=== PATIENT | female | born 1985 | race Caucasian/White ===

== ENCOUNTER 2024-01-27 08:57 | Emergency (ER) | payer MEDICAID, SELFPAY ==
[2024-01-27] VITALS (21 sets, daily range): BP systolic 108–134; BP diastolic 58–85; PULSE 47–81; RESP 6–17; TEMP 36.5–36.8; O2SAT 100
--- NOTE | 2024-01-27 08:45 | RT.EKG_ITS ---
APPROVED REPORT Exam: Resting ECG Reason for Exam: palpitations Patient Location: E HR:79 bpm ECG Measurements Heart Rate 79 AXIS OR 138 P 71 QRSd 78 QRS 51 QT 362 T 29 QTc 416 Conclusion Sinus rhythm...normal P axis, V-rate 60- 99 Probable left atrial enlargement...P >50mS, <-0.10mV V1 sinus rhtthm, normal axis, noraml interavls, non ischemic
--- NOTE | 2024-01-27 09:12 | ED.GENADUL_ITS ---
Discharge Plan Disposition Patient Disposition: Home Condition: Improving Discharge Details Chief Complaint: Palpitatns Clinical Impression: Palpitations Primary Care Provider: Rayna Beverly ED Provider: Darrion Farley Home Meds and New Rx's Prescriptions: No Action ascorbic acid (vitamin C) [Vitamin C] 125 MG tablet,chewable 125 mg PO BID ashwagandha extract 120 mg capsule 120 mg PO DAILY cholecalciferol (vitamin D3) 125 mcg/0.5 mL (5K unit/0.5mL) drops 5 mcg PO DAILY vitamin B complex [Balanced B-50] Tablet 1 tab PO DAILY ferrous sulfate [Feosol] 325 mg (65 mg iron) tablet 325 mg PO DAILY iodine (kelp) 0.15 mg tablet 325 mcg PO .QOD magnesium glycinate 100 mg magnesium capsule 100 mg PO DAILY Discharge Instructions Instructions: Palpitations (DC) Additional Instructions: Please follow-up with your primary care physician. Return to the emergency department for any worsening symptoms HPI General Date/Time Provider Initiated Documentation: 01/27/24 09:01 . HPI Narrative: 38-year-old female presents with intermittent palpitations over the last couple of weeks shortness self-resolving without associated chest pain or shortness of breath, occasionally bilateral hand and finger numbness associated with this event noted that her blood pressure was high last night had a mild headache, patient denies history of coronary disease or thromboembolic disease no recent travel no recent hospitalization no recent trauma no exogenous estrogen use. No leg pain or swelling. Patient endorses that symptoms have largely resolved Related Data Home Medications ?Medication ?Instructions ?Recorded ?Confirmed ascorbic acid (vitamin C) 125 mg 125 mg PO BID 09/26/14 01/27/24 chewable tablet (Vitamin C) ashwagandha extract 120 mg capsule 120 mg PO DAILY 01/27/24 01/27/24 cholecalciferol (vitamin D3) 5 mcg PO DAILY 01/27/24 01/27/24 ferrous sulfate 325 mg (65 mg 325 mg PO DAILY 01/27/24 01/27/24 iron) tablet (Feosol) iodine (kelp) 0.15 mg tablet 325 mcg PO .QOD 01/27/24 01/27/24 magnesium glycinate 100 mg PO DAILY 01/27/24 01/27/24 vitamin B complex (Balanced B-50 1 tab PO DAILY 01/27/24 01/27/24 tablet) Allergies Allergy/AdvReac Type Severity Reaction Status Date / Time levofloxacin (From Levaquin) Allergy Unknown Other (See Unverified 01/27/24 09:10 Comment) tetracycline Allergy Unknown Other (See Unverified 01/27/24 09:10 Comment) General Stated Complaint: Palpitatns MARGARITA: 2 Exam Narrative Exam Narrative: Alert interactive no acute distress Moist mucous membranes Lungs clear bilaterally no wheezes rales or rhonchi Normal heart sounds normal rhythm normal rate no murmurs rubs or gallops No peripheral edema Alert and oriented cranial nerves intact 5-5 strength upper and lower extremities bilaterally ambulatory without assistance no ataxia Course Vital Signs Vital signs: Vital Signs Temperature 36.8 C 01/27/24 09:01 Pulse 80 01/27/24 09:01 Respiratory Rate 10 L 01/27/24 09:01 Blood Pressure 134/85 01/27/24 09:01 Pulse Oximetry 100 01/27/24 09:01 Temperature 36.8 C 01/27/24 09:01 Temperature Source Skin 01/27/24 09:01 Pulse 80 01/27/24 09:01 Respiratory Rate 10 L 01/27/24 09:01 Blood Pressure 134/85 01/27/24 09:01 Pulse Oximetry 100 01/27/24 09:01 Oxygen Delivery Method Room Air 01/27/24 09:01 Oxygen Flow Rate 0 01/27/24 09:01 Pain Level 2 01/27/24 09:01 Medical Decision Making 38-year-old female presents with intermittent short-lived palpitations over the last week associated with hand tingling and numbness bilaterally mild headache gradual in onset, no respiratory symptoms at this time, denies chest pain, patient has no past history of coronary disease no history of thromboembolic disease or risk factors, afebrile nontoxic normotensive EKG normal sinus rhythm nonischemic without evidence of arrhythmia or ectopy. Consider electrolyte derangement versus dehydration versus anxiety lower suspicion for ACS PE aortic pathology or pneumonia lower suspicion for malignant arrhythmia was also consider symptomatic PVCs or PACs. IV crystalloid fluid rest basic labs troponin TSH tick panel as patient did pull a tick off herself within the last couple of weeks not engorged no rash 11: 11 patient resting comfortably no acute distress. Hemodynamically stable. No arrhythmia noted. Labs imaging unremarkable. Patient is on her menstrual period, [id number] negative. Patient courage to follow-up close with her primary care physician. Home care instructions and return precautions given Quality:SDOH Health Related Social Needs: No Data to Display PFSH All Active Problems (Updated 01/27/24 @ 11:12 by Darrion Farley MD) Palpitations (Acute) Personal history of cervical dysplasia (Acute 10/12/15) 2000 SKY II Family History (Updated 11/19/18 @ 16:04 by Regi Dueñas NP) Father Well adult Mother Well adult Social History (Updated 11/19/18 @ 16:03 by Regi Dueñas NP) Smoking risk assessment performed?: No current occupation: [employer]
[2024-01-27] MEDS: Normal Saline 1,000 ML 1000 ML IV (09:20)
[2024-01-27 09:31] LABS: Abs Immature Grans 0.01 10^3/uL (0.0-0.06); Absolute Basophil Count 0.02 10^3/uL (0.0-0.2); Absolute Eosinophil Count 0.23 10^3/uL (0.0-0.7); Absolute Lymphocyte Count 1.83 10^3/uL (1.2-3.4); Absolute Monocyte Count 0.59 10^3/uL (0.1-0.8); Absolute Neutrophil Count 3.07 10^3/uL (1.2-6.7); Basophils % 0.3 %; HCT 39.6 % (36.0-46.0); HGB 13.5 g/dL (11.2-15.7); Immature Grans % 0.2 %; Lymphocytes % 31.8 %; MCH 30.3 pg (27.0-33.0); MCHC 34.1 % (32.0-36.0); MCV 89 fL (80-95); MPV 9.2 fL (8.0-11.0); Monocytes % 10.3 %; Neutrophils % 53.4 %; Platelet Count 316 10^3/uL (130-400); RBC 4.45 10^6/uL (3.93-5.22); RDW 12.1 % (11.7-14.6); RDW-SD 39.5 fL; WBC 5.75 10^3/uL (4.4-10.8)
[2024-01-27 09:39] LABS: PTT Activated 27.6 sec (23.6-32.8); Prothrombin Time 9.7 sec (9.1-11.1)
[2024-01-27 10:08] LABS: ALT 21 U/L (14-59); AST 15 U/L (15-37); Albumin 3.6 g/dL (3.4-5.0); Alkaline Phosphatase 60 U/L (46-116); Anion Gap 6.4 mmol/L (3-11); BUN 13 mg/dL (7-18); Bilirubin, Total 0.39 mg/dL (0.2-1.0); CO2 29.6 mmol/L (21.0-32.0); CREATININE 0.8 mg/dL (0.55-1.02); Calcium 8.8 mg/dL (8.5-10.1); Chloride 106 mmol/L (98-107); Estimated GFR 96.06 (mL/min/1.73m2); Glucose 112 mg/dL (74-106); NT-proBNP 117 pg/mL (<300); Sodium 142 mmol/L (136-145); Total Protein 7.3 g/dL (6.4-8.2); Troponin I < 50 ng/L (< or =60)
[2024-01-27 10:09] LABS: TSH (W/Ref FT4) 2.92 uIU/mL (0.36-3.74)
--- NOTE | 2024-01-27 10:19 | DI.RAD_ITS ---
Exam(s) XR CHEST 2V PA LATERAL EXAM: XR CHEST 2V PA LATERAL CLINICAL HISTORY: palpitations TECHNIQUE: 2D digital imaging was performed of the chest. Two images were obtained. PA and lateral views were obtained. COMPARISON: No exams were available for comparison FINDINGS: MEDIASTINUM: Normal. HEART: Normal. PULMONARY VASCULATURE: Normal. LUNGS: Clear. PLEURAL SPACE: No pleural effusion or pneumothorax. BONE:Within normal limits for the patient's age. OTHER FINDINGS:Normal. IMPRESSION: No acute pulmonary findings. DATA REPOSITORY: RADIATION DOSE DELIVERED:
[2024-01-27 10:24] LABS: Bilirubin Negative (Negative); Blood Large (Negative); Clarity Cloudy (Clear); Glucose Negative (Negative); Ketones Negative (Negative); Leukocyte Esterase Trace (Negative); Nitrite Negative (Negative); Urobilinogen 0.2 mg/dL (Up to 0.2); pH 6.5 (5-8)
[2024-01-27 10:35] LABS: C & S Indicated? Yes; RBC >50 HPF (0-2)
[2024-01-28 11:01] LABS: Lyme Ab w Rflx to Lyme Confirm Negative (Negative)
[2024-01-29 22:42] LABS: Anaplasma phagocytophilum Negative (Negative); B. miyamotoi PCR Negative (Negative); Babesia divergens/MO-1 Negative (Negative); Babesia duncani Negative (Negative); Babesia microti Negative (Negative); Ehrlichia chaffeensis Negative (Negative); Ehrlichia ewingii/canis Negative (Negative); Ehrlichia muris eauclairensis Negative (Negative)
== END 2024-01-27 11:21 | disposition home or self-care (01) ==
PROVIDERS: Emergency Provider Emergency Medicine; PCP Nurse Practitioner Adult Health
DX: R00.2 Palpitations (principal)
CPT/HCPCS: 80053; 81025; 82962; 87798; 93005; 96360; 96361; 99285; 71046; 81003; 81015; 83735; 83880; 84443; 84484; 85025; 85610; 85730; 86618; 87086; 93010; 99284

== ENCOUNTER 2024-04-04 03:27 | Outpatient (CLI) | payer MEDICAID, SELFPAY ==
[2024-04-04 15:09] LABS: Kit/Specimen SENT
[2024-04-04 15:20] LABS: Abs Immature Grans 0.02 10^3/uL (0.0-0.06); Absolute Basophil Count 0.02 10^3/uL (0.0-0.2); Absolute Eosinophil Count 0.31 10^3/uL (0.0-0.7); Absolute Lymphocyte Count 2.12 10^3/uL (1.2-3.4); Absolute Monocyte Count 0.54 10^3/uL (0.1-0.8); Absolute Neutrophil Count 4.36 10^3/uL (1.2-6.7); Basophils % 0.3 %; Eosinophils % 4.2 %; HGB 13.3 g/dL (11.2-15.7); Immature Grans % 0.3 %; Lymphocytes % 28.8 %; MCH 29.8 pg (27.0-33.0); MCHC 33.3 % (32.0-36.0); MCV 90 fL (80-95); MPV 9.2 fL (8.0-11.0); Monocytes % 7.3 %; Neutrophils % 59.1 %; Platelet Count 314 10^3/uL (130-400); RBC 4.46 10^6/uL (3.93-5.22); RDW 12.1 % (11.7-14.6); RDW-SD 39.7 fL; WBC 7.37 10^3/uL (4.4-10.8)
[2024-04-04 16:53] LABS: Iron 99 ug/dL (50-170); Total Iron Binding Capacity 291 ug/dL (250-450); Transferrin Sat 34 % (15-50)
[2024-04-04 17:16] LABS: ALT 19 U/L (14-59); AST 16 U/L (15-37); Albumin 3.5 g/dL (3.4-5.0); Alkaline Phosphatase 61 U/L (46-116); Anion Gap 6.8 mmol/L (3-11); BUN 11 mg/dL (7-18); CO2 29.2 mmol/L (21.0-32.0); CREATININE 0.8 mg/dL (0.55-1.02); Calcium 8.9 mg/dL (8.5-10.1); Chloride 105 mmol/L (98-107); Estimated GFR 96.06 (mL/min/1.73m2); FREE T4 0.93 ng/dL (0.76-1.46); Ferritin 37 ng/mL (8-252); Glucose 95 mg/dL (74-106); Potassium 4.2 mmol/L (3.5-5.1); Sodium 141 mmol/L (136-145); TSH 1.47 uIU/Ml (0.36-3.74); Total Protein 6.8 g/dL (6.4-8.2); Vitamin B12 649 pg/mL (193-986); Vitamin D 25 Total 89.7 ng/mL (30-100)
[2024-04-04 17:19] LABS: Folate > 20.0 ng/mL (8.6-20.0)
[2024-04-05 19:07] LABS: Thyroglobulin Antibody 72 U/mL (<=60); Thyroperoxidase Antibody 42 U/mL (<=60)
== END 2024-04-04 03:28 | disposition home or self-care (01) ==
LOC: LBO 03:28
PROVIDERS: Visit Provider Naturopath
DX: R00.2 Palpitations (principal); E61.1 Iron deficiency; E55.9 Vitamin D deficiency, unspecified
CPT/HCPCS: 36415; 80053; 82306; 86376; 82607; 82728; 82746; 83540; 83550; 83735; 84439; 84443; 85025

== ENCOUNTER 2024-06-07 02:28 | Outpatient (CLI) | payer MEDICAID, SELFPAY ==
[2024-06-07 09:52] LABS: Hemoglobin A1C 5.3 % (<5.7)
[2024-06-07 11:04] LABS: Calculated LDL 108 mg/dL (<100); Cholesterol 167 mg/dL (<200); HDL Cholesterol 41 mg/dL (40-60); Triglyceride 93 mg/dL (<150); Vitamin D 25 Total 70.7 ng/mL (30-100)
[2024-06-08 10:23] LABS: Homocysteine 6.8 umol/L (5.0-13.9)
[2024-06-10 10:45] LABS: Apolipoprotein A1, S 102 mg/dL (>=140); Apolipoprotein B, S 90 mg/dL (See Comment); Apolipoprotein B/A 1 ratio 0.9 (See Comment)
== END 2024-06-07 02:29 | disposition home or self-care (01) ==
LOC: LBO 02:28
PROVIDERS: PCP Naturopath; Visit Provider Naturopath
DX: E67.3 Hypervitaminosis D (principal); Z13.220 Encounter for screening for lipoid disorders
CPT/HCPCS: 36415; 80061; 82172; 82306; 83090; 83036

== ENCOUNTER 2024-08-08 01:20 | Outpatient (CLI) | payer MEDICAID, SELFPAY ==
--- OUTSIDE RECORDS SUMMARY | 2024-08-08 01:33 | XMS_ITS | Encounter Summary ---
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 Phone Unavailable Primary Care Provider Unavailabl e Encounter Details Date Type Department Care Team (Late st Contact Info) Description 01/27/2024 Lab Requisition [facility] Pathology & Laboratory Medicine - [facility] [address] [place] [address] Outr Resulting Lab, Provider Social History Tobacco Use Types Packs/Day Years Used Date Smoking Tobacco: Never Assessed Comments Unknown Sex and Gender Information Value Date Recorded Sex Assigned at Not on file Legal Sex Female 12:24 EDT Gender Identity Not on file Sexual Orientation Not on file documented as of this encounter Plan of Treatment Not on file documented as of this encounter Procedures Procedure Name Priority Date/Time Associated Diagnosis Comments LYME AB Routine 01/27/2024 9:15 EDT documented in this encounter Results * LYME AB (01/27/2024 9:15 EDT) Lyme Ab Negative Negative 01/28/2024 10:57 EDT [facility] Blood VENOUS BLOOD / Unknown 01/27/2024 9:15 EDT 01/27/2024 17:26 EDT us Provider Outr Resulting Lab IMMUNOLOGY AND SEROL OGY ORDERABLES Final Result [facility] [address], [place] [address] documented in this encounter Visit Diagnoses Not on filedocumented in this encounter
--- OUTSIDE RECORDS SUMMARY | 2024-08-08 01:33 | XMS_ITS | Clinical Summary ---
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 Phone Unavailable Primary Care Provider Unavailabl e Encounters Date Type Department Care Team Description 06/07/2024 Lab Requisition [facility] Pathology & Laboratory Medicine - [facility] [address] [place] [address] Outr Resulting Lab, Provider from Last 3 Months Social History Tobacco Use Types Packs/Day Years Used Date Smoking Tobacco: Never Assessed Comments Unknown Sex and Gender Information Value Date Recorded Sex Assigned at Not on file Legal Sex Female 12:24 EDT Gender Identity Not on file Sexual Orientation Not on file Plan of Treatment Health Maintenance Due Date Last Done Comments Hepatitis C Screen 1984 Hepatitis B Vaccine (1 of 3 - 19+ 3-dose series) 11/14 COVID-19 Vaccine ( season) 2024 Procedures Procedure Name Priority Date/Time Associated Diagnosis Comments HOMOCYSTEINE Routine 06/07/2024 9:38 EST from Last 3 Months Results * HOMOCYSTEINE (06/07/2024 9:38 EST) Homocysteine 6.8 5.0 - 13.9 umol/L 06/08/2024 10:[address] [facility] Blood VENOUS BLOOD / Unknown 06/07/2024 9:38 EST 06/07/2024 20:43 EST Narrative [facility] - 06/08/2024 10:19 EST Reference range may not apply to non-fasting samples. ??It is not recommended that EDTA plasma and serum from the same patient be used interchangeably. ??Serum concentrations have been observed to be up to 10% higher than EDTA plasma. Reference range may not apply to serum results. us Provider Outr Resulting Lab CHEMISTRY & BLOOD GA S ORDERABLES Final Result [facility] [address] [place] [address] from Last 3 Months
--- OUTSIDE RECORDS SUMMARY | 2024-08-08 01:33 | XMS_ITS | Continuity of Care Document ---
Author Organization [place] - [facility] [employer], MAIN OFFICE [place] [address] Assessment Encounter Date Assessment Date Assessment LastModified by Organization Details LastModified Time 05/17/2024 05/17/2024 Patient presented for follow up of labs. Studies ordered as below. Discussed plan with patient, who expressed understanding. Follow up as noted below. Please call if palpitations get worse or there are any associated chest pain, shortness of breath and/or dizziness. I spent a total of 45 minutes face to face time with this patient and of that time was spent in counseling and coordination of care with that patient as described in the progress note and /or: diagnostic results and impressions, Not available 05/18/2024 20:46:06 Plan of Treatment Reminders Order Date Submit Date Provider Last Modified By Organization Details Last Modified Time Details Appointments ESTABLISH ED PATIENT 45 2024 11:45A M Paulina Reynoso, [place] Not available Not available Not available Lab None recorded. Referral None recorded. Procedures None recorded. Surgeries None recorded. Imaging None recorded. Medication Orders None recorded. Patient TargetsNo targets recorded. Patient Instructions Encounter Date Encounter Id Patient Instructions Last Modified By Organization Details Last Modified Time 05/17/2024 [id number] painful menstrua l cramps: care instructions Not available 05/18/2024 20:46:06 1. continue ledu m and bartonella tincture for several more onths 2. MAgsoothe packets 1-2 daily- if having a lot of muscle cramps take 3xday for a few days then back to once daily 3. Continue monitoring pulse if feeling like heart is racing- 4. Consider Neurohormone testing for hormonal related symptoms Vitamin D- only take 1 drops daily- but could even take a break from it for a week every months Cont. previous supplments for at least 3 more months- repeat labs- and labs that didnt get done yet- cholesterol- fast 10 hours night before, Vit D- dont take for 3 days prior blood draw Not available 05/18/2024 20:45:02 Reason for Referral None Reported. Problems Name Problem SNOMED Code Status Onset Date Resolution Date Notes Provider Name and Address Organization Details Recorded Time Benign essential hypertensio n 6258234 Active 2023 Paulina Reynoso ND [address] [place] [address], [address], [facility] 10:44:40 Essential hypertensio n 72207510 Active 2023 Paulina Reynoso [address], [address], [facility] 10:57:54 Intermitten t palpitation s 324108976 Active 2023 Paulina Reynoso [address], [address] , [facility] 10:57:58 Iron deficiency without anemia 687074573 Active 2023 Paulina Reynoso ND [address] [place] [address], [address] , [facility] 11:13:53 Chronic constipatio n 087062907 Active 2023 Paulina Reynoso ND [address] [place] [address], [address] , [facility] 11:14:36 Hypervitami nosis D 68768259 Active 2023 Paulina Reynoso [address], [address] , [facility] 09:22:13 Manuelito is 815338350 Active 2023 Paulina Reynoso [address], [address] , [facility] 10/08/202 4 09:30:10 Palpitation s 40231184 Active 2023 Paulina Reynoso ND [address] [place] [address], [address], [facility] 4 14:00:23 Nocturnal muscle spasm 56536803 Active 2023 Paulina Reynoso ND [address] [place] [address], [address], [facility] 4 20:36:35 Dysmenorrhe a 885708285 Active 2023 Paulina Reynoso ND [address] [place] [address], [address], [facility] 4 20:37:09 Euthyroid with thyroid antibodies 730269267 Active 2023 Paulina Reynoso ND [address] [place] [address], [address], [facility] 4 20:45:30 Hyperlipide opal 42568841 Active 2023 Paulina Reynoso ND [address] [place] [address], [address], [facility] 4 11:59:40 Gynecologic examination Active 2018 Paulina Reynoso ND [address] [place] [address], [address], [facility] 9 07:35:33 Vitamin D deficiency 39666564 Active 2018 Paulina Reynoso ND [address] [place] [address], [address], [facility] 9 07:35:34 Dietary management surveillanc e Active 2018 Paulina Reynoso [address], [address], [facility] 9 07:35:35 Anisocoria [id number] Completed 201804/04/2019 Paulina SusieBISHOP shaikh [address] [place] [address], [address], [facility] 9 20:36:02 Constipatio n 02180739 Active 2018 Paulina Reynoso ND [address] [place] [address], [address], [facility] 9 07:35:56 Vitamin B12 deficiency (non anemic) 03828451 Active 2018 Paulina Reynoso ND [address] [place] [address], [address], [facility] 9 07:39:41 Iron deficiency 26951860 Active 2018 Paulina Reynoso ND [address] [place] [address], [address], [facility] 9 07:39:42 Problem Notes None recorded. Procedures Surgical History Date Name Laterality Status Provider Name and Address Organization Details Recorded Time 12/26/2015 Date of Last Pap Smear completed Paulina Reynoso ND [address] [place] [address], [address], [facility] 12/29/2018 14:53:40 Imaging Results None recorded. Procedure Notes None recorded. Medical Equipment None Reported. Allergies Allergen ID Allergen Name Allergen Category Reaction Reaction Severity Criticality Documentation Date Start Date Code Code System Note Provider Name and Address Organization Details Recorded Time 2293 Levaquin medicatio n other moderate Not available 12/29/2018 07487 2 RxNorm Paulina Reynoso ND [address] [place] [address], [address], [facility] 9 14:53:00 2295 saffron extract food,medi cation other moderate Not available 12/29/2018 57147 04 RxNorm Paulina Reynoso ND [address] [place] [address], [address], [facility] 9 14:53:00 2296 tetracycl ine medicatio n nausea moderate Not available 12/29/2018 00338 RxNorm Paulina Reynoso ND [address] [place] [address], [address], [facility] 9 14:53:00 2297 lactase medicatio n abdominal pain diarrhea nausea moderate moderate mild Not available 12/29/20181984 21784 RxNorm Paulina ReynosoBISHOP [address] [facility], [place], [address], [facility] 9 14:53:00 Medications Name Sig Start Date Stop Date Status Note LastModified by Organization Details LastModified Time Ferrasorb 2 caps 2xday for 1 month then 1 cap 2xday 019 active Not Available Not Available Not Avai lable Ferrasorb 1 cap 2xday with food or vit C rich foods like citrus 019 active Not Available Not Available Not Avai lable Ferrasorb 2 caps 2xday for 1 month then 1 cap 2xday 019 active Not Available Not Available Not Avai lable D-Mulsion 1000iu 4 drops /day 019 active Not Available Not Available Not Avai lable GI Fortify Powder 1/2 scoop 2xday in 10oz liquid for 3-4 days follwed by 10-12 oz water. Increase to 1 full scoop 2xday 019 active Not Available Not Available Not Avai lable QuickVue At-Home COVID-19 Test kit DIRECTED active Not Available Not Available No t Available Vitals None Recorded Social History Question Answer Notes LastModified by Organizat ion Details LastModified Time Tobacco Smoking Status Never Smoker Paulina ReynosoBISHOP [address] [facility], [place], [address], [facility] 12/29/2018 14:54:24 What Is Your Level Of Alcohol Consumption? None Information not available 12/29/2018 How Many Years Have You Consumed Alcohol? 7 Information not available 12/29/2018 Animal Exposure? Yes Informat ion not available 12/29/2018 Are You Blind Or Do You Have Difficulty Seeing? No Information not available 12/29/2018 What Is Your Level Of Caffeine Consumption? None Information not available 12/29/2018 How Much Tobacco Do You Chew? None Information not available 12/29/2018 Are You Currently Employed? Yes Information not available 12/29/2018 Are You Deaf Or Do You Have Serious Difficulty Hearing? No Information not available 12/29/2018 What Type Of Diet Are You Following? 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 No Information no t available 12/29/2018 Frequent Air Travel No Information not available 12/29/2018 Hard Of Hearing Or Deaf In One Or Both Ears? No Information not available 12/29/2018 Legally Blind In One Or Both Eyes? No Information no t available 12/29/2018 Live Alone Or With Others? Alone Information not available 12/29/2018 Marital Status Informatio n not available 12/29/2018 What Was The Date Of Your Most Recent Tobacco Screening? 12/29/2018 Information not available 01/27/2019 What Is Your Parents' Marital Status? Information not available 12/29/2018 What Is Your Relationship Status? Single Information not available 12/29/2018 Are You Sexually Active? No Information not available 12/29/2018 Do You Have Any Siblings? 3 Information not available 12/29/2018 Are You Passively Exposed To Smoke? No Information no t available 12/29/2018 General Stress Level Low Information not available 12/29/2018 Supplements Vitamin C And Calcium/Vitami n D Information not available 12/29/2018 Sex: Unknown Functional Status Question Answer Note LastModified by Organizat ion Details LastModified Time Do you have difficulty walking or climbing stairs? No Information not available 12/29/2018 Do you have difficulty doing errands alone? No Information not available 12/29/2018 Are you able to care for yourself? Yes Information not available 12/29/2018 Do you have difficulty dressing or bathing? No Information not available 12/29/2018 What is your exercise level? Occasional Information not available 12/29/2018 Mental Status Question Answer Note LastModified by Organization D etails LastModified Time Do you have difficulty concentrating, remembering or making decisions? No Information no t available 12/29/2018 Family History Relationship Description Onset Age of this Age Resolved Age Notes LastModified by Organization Details LastModified Time Maternal Aunt Arthritis Not available 12/29/2018 14:53:24 Maternal Grandmother Osteoporosis 70 Not available 12/29/2018 14:53:24 Maternal Grandmother Disorder of thyroid gland Not available 2018 14:53:24 Maternal Grandmother Arthritis Not available 14:53:24 Maternal Grandmother Hyperthyroid ism Not available 2023 11:11:07 Father Obesity 45 Not available 12/29/2018 14:53:24 Maternal Grandfather Heart disease Not available 2018 14:53:24 Sister Hypothyroidi sm Not available 2023 11:11:19 Medical History Condition Response Coronary Artery Disease N Other N Gout N Kidney Stones N Blood Diseases N Hyperthyroidism N Breast Cancer N Blood Transfusion N COPD N Hypothyroidism N Lung Disease N Depression N Defects or Inherited Disease N Developmental or Behavioral Disorders N Breast Problem N Difficulty Swallowing N Anesthesia Complications N Anxiety Disorder N Meniere's disease N Muscle, Joint, or Bone Problems N Obesity N Vision or Eye Problems N Arthritis N Infertility N Polyps N Mental Disorder N Cancer N Stroke N Varicosities N Endometriosis N Bladder or Kidney Problems N High Cholesterol N Liver Disease N Fibromyalgia N Headaches N Kidney Disease N Allergies/Hayfever N Heart Problems N Sleep problems/insomnia N Ear or Hearing Problems N Hospitalizations N Thyroid Problems N GI Problems N ADD/ADHD N Skin Problems N Eating Disorder N Anemia N MRSA exposure N Constipation N Mental Illness N Ovarian Cancer N Diabetes N Bedwetting N Seizures/Epilepsy N Tuberculosis N AIDS/HIV N Congestive Heart Failure (CHF) N Eczema N Diverticulitis N Abuse/Domestic Violence N Asthma N Reflux/GERD N Hepatitis N Heart Disease N Pulmonary Embolism N Pre-Eclampsia N Hypertension N Chronic Ear Infections N Osteoporosis N Chicken Pox Y Autism Spectrum Disorder (ASD) N Thrombophilias N Gynecological History Statement/Question Response Flow Moderate Frequency of Cycle (Q days) 28 Sexually Active? N N/A STIs/STDs N Date of Last Pap Smear 12/26/2015 Sexual Problems? N Duration of Flow (days) 5 Current Control Method None Desired Control Method N/A N Obstetrics History GPAL:G 0 P 0 0 0 0 Immunizations Vaccine Type Date Status Note Provider Nam e and Address Organization Details Recorded Time HPV, unspecified formulation 6 completed Paulina Reynoso, [address], [address], [facility] 12/29/2018 14:55:38 polio, unspecified formulation 1 completed Paulina Reynoso, [address], [address], [facility] 12/29/2018 14:55:38 tetanus toxoid, unspecified formulation 0 completed Paulina Reynoso, [address], [address], [facility] 12/29/2018 14:55:38 Meningococcal C/Y-HIB PRP 3 completed Paulina Reynoso, [address], [address], [facility] 12/29/2018 14:55:38 HPV, unspecified formulation 6 completed Paulina Reynoso [address], [address], [facility] 12/29/2018 14:55:38 MMR 0 completed Paulina Reynoso [address], [address], [facility] 12/29/2018 14:55:38 DTaP 8 completed Paulina Reynoso [address], [address], [facility] 12/29/2018 14:55:38 Past Encounters Encounter ID Performer Location Encounter Start Date Encounter Closed Date Diagnosis/Indication Diagnosis SNOMED-CT Code Diagnosis ICD10 Code Diagnosis Note [id number] Paulina Reynoso ND MAIN OFFICE [address] [place] [address] 05/17/2024 13:17:05 05/17/2024 14:13:16 Palpitations 02953455 R00.2 Nocturnal muscle spasm 46023774 G47.62 Dysmenorrhea 704723278 N 94.6 Euthyroid with thyroid antibodies 075126288 E07.81 Health Concerns Section Related Observation LastModified by Organization Yuriy mccormick LastModified Time None Recorded Concern Status LastModified by Organization Details LastModified Time None Recorded Payers Encounter Date Sequence Insurance Name Policy Number Policy Martinez Covered Member ID Martinez Member ID Guarantor Name 05/17/2024 1 [facility] (MEDICAID) Lissy Arriaza [id number] Lissy Arriaza Notes Date Note Type Note Provider Name and Address Organization Details Recorded Time 4 text/html PalpitationsReported bypatient.Quality:mild fluttering;irregular;rapi d Severity:mild Duration:lasts seconds Onset/Timing:occurs weekly Triggers/Context:restless legs;anxiety Aggravating Factors:worse with emotional stress;anxiety Associated Symptoms:no chest pain/discomfort; no dyspnea; no decline in exercise capacity; no associated dizziness;fatigue heart racing hasnt really chaanged since being on herbal tincture for bartonellashe feels mental fog has lifted and it more clear headed since starting the tincture-energy is somewhat better- too second day of period was very crampy-just one day the second day of period-she took alieve and it didnt really help only took edge off- she has never been checked for a cyst-she had achey feeling midcycle one time-no missed periodsno spotting between periods she never did doxycycline doesnt have any current rashes she feels she doesnt get enough water sts and she wondered if electrotyles-she has had muscle cramps at noght that wasnt allowed to move her left leg-she thinks related- not drinking enough- discussed electrolytes Paulina Reynoso, [place] [address] [facility], [place], [address], [place] - [facility] 05/18/2024 20:46:19 OBGyn Episode No OBEpisode recorded.
--- OUTSIDE RECORDS SUMMARY | 2024-08-08 01:33 | XMS_ITS | Data Portability ---
Author Organization [facility], MAIN OFFICE [place] [address] Assessment Encounter Date Assessment Date Assessment LastModified by Organization Details LastModified Time 04/12/2024 04/12/2024 Patient presente d for follow up of labs. Studies ordered as below. Discussed plan with , who expressed understanding. Follow up as noted below. I spent a total of 45 minutes face to face time with this patient and all of that time was spent in counseling and coordination of care with that patient as described in the progress note and /or: diagnostic results and impressions, risk factor reduction, Importance of compliance with treatment plan, and instructions for treatment and follow-up. Not available 05/18/2024 20:24:35 05/17/2024 05/17/2024 Patient presente d for follow up of labs. Studies ordered [...] results and impressions, Not available 05/18/2024 20:46:06 06/14/2024 06/14/2024 cardiovascular risk- is high with low A1 and high Apo B and ldl 108 and total 167- dietary- recommendations made and will be doing dietary assessment to prevent future cardiovascular or metabolic syndrome. I spent a total of 45 minutes face to face time with this patient and 40 min of that time was spent in counseling and coordination of care with that patient as described in the progress note and /or: diagnostic results and impressions, risk factor reduction, Importance of compliance with treatment plan, and instructions for treatment and follow-up. Patient advised to call if palpitations get worse or there are any associated chest pain, shortness of breath and/or dizziness. Not available 06/14/2024 18:40:38 08/02/2024 08/02/2024 I spent a total of 45 minutes face to face time with this patient and all of that time was spent in counseling and coordination of care with that patient as described in the progress note and /or: recommended diagnostic studies, risk factor reduction, pt and family education, Importance of compliance with treatment plan, and instructions for treatment and follow-up. Patient advised to call if palpitations get worse or there are any associated chest pain, shortness of breath and/or dizziness. Not available 08/03/2024 18:17:36 Plan of Treatment Reminders Order Date Submit Date Provider Last Modified By Organization Details Last Modified Time Details Appointments ESTABLISH ED PATIENT 45 2024 11:45A Melissa Reynoso, BISHOP Not available Not available Not available Lab lipid panel, serum 2023 [facility] [address] [place] [address] [place], [address], 05/24/2024 04:08:00 HbA1c (hemoglob in A1c), blood [address] [facility] [address] [place] [address] [place], [address], 05/24/2024 04:08:00 homocyste ine, serum or plasma 2023 [facility] [address] [place] [address] [place], [address], 05/24/2024 04:08:00 apolipopr otein B/apolipo protein A1 ratio [address] [facility] [address] [place] [address] [place], [address], 05/24/2024 04:08:00 vitamin D, 25-hydrox y, total, serum [address] [facility] [address] [place] [address] [place], [address], 06/07/2024 11:05:20 dhea-sulf ate, serum 2024 025 [facility] ([facility]), [address] [place] [address] [place], [address], 08/02/2024 11:45:05 testoster one, free + total, serum 2024 025 [facility] ([facility]), [address] [place] [address] [place], [address], 08/02/2024 11:45:05 progester one, serum 2024 025 [facility] ([facility] [address] [place] [address] [place], [address], 08/02/2024 11:45:05 estrogen fraction panel, serum or plasma 2024 025 [facility] ([facility] [address] [place] [address] [place], [address], 08/02/2024 11:45:05 iron + TIBC + ferritin, serum 2024 025 [facility] ([facility] [address] [place] [address] [place], [address], 08/02/2024 11:45:05 vitamin B12 + folate, serum or blood 2024 025 [facility] ([facility]), [address] [place] [address] [place], [address], 08/02/2024 11:45:05 Referral None recorded. Procedures None recorded. Surgeries None recorded. Imaging None recorded. Medication Orders None recorded. Patient Targets Encounter Date Encounter Id Patient Goals Patient Target Last Modified By Organization Details Last Modified Time 1.rx for doxycycline- sent to [facility] in [place]2. herbal tincture-for bartonella-60 drops 3xdaily for 1 monthcall if reaction or feeling like rashes are related to deotx3. NAC 900 2 cap p8yajinz- helps stop biofilm formation4. thyroid complex 1 cap 2xday5. vitamin D- 1 drops daily for 2 months and then retest- remeber to stop taking 3 days prior to testing againlipid testing next time get blood drawn-fast 10 hours night before- clear fluids only-ledum 2-3 pellets under tongue 2-3 xday or as instructed kknight Not available 05/18/2024 20:25:25 Patient Instructions Encounter Date Encounter Id Patient Instructions Last Modified By Organization Details Last Modified Time 05/17/2024 [id number] painful menstrua l cramps: care instructions Not [...] take for 3 days prior blood draw kknight Not available 05/18/2024 20:45:02 06/14/2024 [id number] palpitations: care instructions Not available 06/14/2024 18:42:52 high cholesterol : care instructions Not available 06/14/2024 18:42:52 1. Limit beef- 1 week, plant based proteins like lentil, beans, soybean whole (edamame), fish- 2xweekly- chicken and turkey- 3 xweekly for main meals Continue as you were unless noted: vit d, [employer] b-comlex, iron supp, megaspores, MG glycinate, NAC- reduce to 1 cap daily for another month then discontinue and only use if cold/flu or otherwise specified, thyroid support complex- bartonella herbs continue for 2-3 months more- 2. vitamin D take 1 drop daily for another month then 2 drops daily for rest of winter- 3. exercise daily- doing wieght lifting, squats, arm lifts, leg lifts to the point of burning muscles- you can add cardio with walking or stair climbs all without equipment- Not available 06/14/2024 11:59:32 08/02/2024 [id number] painful menstrua l cramps: care instructions Not available 08/02/2024 11:39:06 1. get blood work- for hormonal levels- days - of menstrual cycle 2. pap- up to date- [facility]- 3. herbal Bartonella support tincture 30 drops 3xday 4. continue diet with less red meat and more fish- and eat more vegetables- *call if palpitations get worse or there are any associated chest pain, shortness of breath and/or dizziness. Not available 08/03/2024 18:15:48 Reason for Referral None Reported. Results Created Date Observation Date Name Description Value Unit Range Abnormal Flag Note LastModifiedBy Organization Detail LastModifiedTime 04/04/2004/04/2024 COMPL ETE BLOOD COUNT W/DIF F WBC # bld auto 7.37 10_3/ uL 4.4-10 .8 normal Not Available [address] [place], [address] 04/04/2024 15:22:01 04/04/20 24 04/04/2024 COMPL ETE BLOOD COUNT W/DIF F RBC # bld auto 4.46 10_6/ uL 3.93-5 .22 normal Not Available [address] [place], [address] 04/04/2024 15:22:01 04/04/20 24 04/04/2024 COMPL ETE BLOOD COUNT W/DIF F HGB 13.3 g/dL 11.2-1 5.7 normal Not Available [address] [place], [address] 04/04/2024 15:22:01 04/04/20 24 04/04/2024 COMPL ETE BLOOD COUNT W/DIF F HCT vfr bld auto 40.0 % 36.0-4 6.0 normal Not Available [address] [place], [address] 04/04/2024 15:22:01 04/04/20 24 04/04/2024 COMPL ETE BLOOD COUNT W/DIF F MCV RBC 90 fL 80-95 normal Not Available Cate hi [address] [place], [address] 04/04/2024 15:22:01 04/04/20 24 04/04/2024 COMPL ETE BLOOD COUNT W/DIF F MCH RBC qn auto 29.8 pg 27.0-3 3.0 normal Not Available [address] [place], [address] 04/04/2024 15:22:01 04/04/20 24 04/04/2024 COMPL ETE BLOOD COUNT W/DIF F MCHC RBC auto-mcnc 33.3 % 32.0-3 6.0 normal Not Available [address] [place], [address] 04/04/2024 15:22:01 04/04/20 24 04/04/2024 COMPL ETE BLOOD COUNT W/DIF F RDW RBC auto-RTO 12.1 % 11.7-1 4.6 normal Not Available [address] [place], [address] 04/04/2024 15:22:01 04/04/20 24 04/04/2024 COMPL ETE BLOOD COUNT W/DIF F platelet # bld auto 314 10_3/ uL 130-40 0 normal Not Available [address] [place], [address] 04/04/2024 15:22:01 04/04/20 24 04/04/2024 COMPL ETE BLOOD COUNT W/DIF F pmv bld auto 9.2 fL 8.0-11 .0 normal Not Available [address] [place], [address] 04/04/2024 15:22:01 04/04/20 24 04/04/2024 COMPL ETE BLOOD COUNT W/DIF F neutrophils/ leuk nfr bld auto 59.1 % Not Available [address] [place], [address] 04/04/2024 15:22:01 04/04/20 24 04/04/2024 COMPL ETE BLOOD COUNT W/DIF F lymphocytes/ leuk nfr bld auto 28.8 % Not Available [address] [place], [address] 04/04/2024 15:22:01 04/04/20 24 04/04/2024 COMPL ETE BLOOD COUNT W/DIF F monocytes/le uk nfr bld auto 7.3 % Not Available [address] [place], [address] 04/04/2024 15:22:01 04/04/20 24 04/04/2024 COMPL ETE BLOOD COUNT W/DIF F eosinophil/l euk nfr bld auto 4.2 % Not Available [address] [place], [address] 04/04/2024 15:22:01 04/04/20 24 04/04/2024 COMPL ETE BLOOD COUNT W/DIF F basophils/le uk nfr bld auto 0.3 % Not Available [address] [place], [address] 04/04/2024 15:22:01 04/04/20 24 04/04/2024 COMPL ETE BLOOD COUNT W/DIF F imm granulocytes /leuk nfr bld auto 0.3 % Not Available [address] [place], [address] 04/04/2024 15:22:01 04/04/20 24 04/04/2024 COMPL ETE BLOOD COUNT W/DIF F NRBC/100 WBC bld auto-RTO 0.0 % 0.0-0. 3 normal Not Available [address] [place], [address] 04/04/2024 15:22:01 04/04/20 24 04/04/2024 COMPL ETE BLOOD COUNT W/DIF F neutrophils # bld auto 4.36 10_3/ uL 1.2-6. 7 normal Not Available [address] [place], [address] 04/04/2024 15:22:01 04/04/20 24 04/04/2024 COMPL ETE BLOOD COUNT W/DIF F lymphocytes # bld auto 2.12 10_3/ uL 1.2-3. 4 normal Not Available [address] [place], [address] 04/04/2024 15:22:01 04/04/20 24 04/04/2024 COMPL ETE BLOOD COUNT W/DIF F monocytes # bld auto 0.54 10_3/ uL 0.1-0. 8 normal Not Available [address] [place], [address] 04/04/2024 15:22:01 04/04/20 24 04/04/2024 COMPL ETE BLOOD COUNT W/DIF F eosinophil # bld auto 0.31 10_3/ uL 0.0-0. 7 normal Not Available [address] [place], [address] 04/04/2024 15:22:01 04/04/20 24 04/04/2024 COMPL ETE BLOOD COUNT W/DIF F basophils # bld auto 0.02 10_3/ uL 0.0-0. 2 normal Not Available [address] [place], [address] 04/04/2024 15:22:01 04/04/20 24 04/04/2024 IRON AND IBCT iron serpl-mcnc 99 ug/dL 50-170 normal Not Available [address] [place], [address] 04/04/2024 16:54:14 04/04/20 24 04/04/2024 IRON AND IBCT TIBC serpl-mcnc 291 ug/dL 250-45 0 normal Not Available [address] [place], [address] 04/04/2024 16:54:14 04/04/20 24 04/04/2024 IRON AND IBCT transferrin sat 34 % 15-50 normal Not Available [address] [place], [address] 04/04/2024 16:54:14 04/04/20 24 04/04/2024 COMPR EHENS JOSEPH METAB OLIC PANEL calcium serpl-mcnc 8.9 mg/dL 8.5-10 .1 normal Not Available [address] [place], [address] 04/04/2024 17:19:37 04/04/20 24 04/04/2024 COMPR EHENS JOSEPH METAB OLIC PANEL glucose serpl-mcnc 95 mg/dL 74-106 normal Not Available [address] [place], [address] 04/04/2024 17:19:37 04/04/20 24 04/04/2024 COMPR EHENS JOSEPH METAB OLIC PANEL BUN serpl-mcnc 11 mg/dL 7-18 normal Not Available [address] [place], [address] 04/04/2024 17:19:37 04/04/20 24 04/04/2024 COMPR EHENS JOSEPH METAB OLIC PANEL creat serpl-mcnc 0.8 mg/dL 0.55-1 .02 normal Not Available [address] [place], [address] 04/04/2024 17:19:37 04/04/20 24 04/04/2024 COMPR EHENS JOSEPH METAB OLIC PANEL GFR/bsa.pred serplbld YVV-oir-olrk at 96.06 mL/min /1.73M 2 The eGFR is calcu lated from a serum creat inine using the CKD-E PI 2020 equat ion. Other varia bles requi red for the equat ion are gende r and age; this equat ion does not inclu de a race coeff icien t. This equat ion has simil ar overa ll perfo rmanc e to previ ous equat ions excep t value s may diffe r, in parti cular , in patie nts with highe r value s of eGFR and young er-ag ed adult s. Not Available [address] [place], [address] 04/04/2024 17:19:37 04/04/20 24 04/04/2024 COMPR EHENS JOSEPH METAB OLIC PANEL prot serpl-mcnc 6.8 g/dL 6.4-8. 2 normal Not Available [address] [place], [address] 04/04/2024 17:19:37 04/04/20 24 04/04/2024 COMPR EHENS JOSEPH METAB OLIC PANEL albumin serpl-mcnc 3.5 g/dL 3.4-5. 0 normal Not Available [address] [place], [address] 04/04/2024 17:19:37 04/04/20 24 04/04/2024 COMPR EHENS JOSEPH METAB OLIC PANEL bilirub serpl-mcnc 0.30 mg/dL 0.2-1. 0 normal Not Available [address] [place], [address] 04/04/2024 17:19:37 04/04/20 24 04/04/2024 COMPR EHENS JOSEPH METAB OLIC PANEL ALP bld-ccnc 61 U/L 46-116 normal Not Available [address] [place], [address] 04/04/2024 17:19:37 04/04/20 24 04/04/2024 COMPR EHENS JOSEPH METAB OLIC PANEL sodium serpl-scnc 141 mmol/ L 136-14 5 normal Not Available [address] [place], [address] 04/04/2024 17:19:37 04/04/20 24 04/04/2024 COMPR EHENS JOSEPH METAB OLIC PANEL potassium serpl-scnc 4.2 mmol/ L 3.5-5. 1 normal Not Available [address] [place], [address] 04/04/2024 17:19:37 04/04/20 24 04/04/2024 COMPR EHENS JOSEPH METAB OLIC PANEL chloride serpl-scnc 105 mmol/ L 98-107 normal Not Available [address] [place], [address] 04/04/2024 17:19:37 04/04/20 24 04/04/2024 COMPR EHENS JOSEPH METAB OLIC PANEL CO2 serpl-scnc 29.2 mmol/ L 21.0-3 2.0 normal Not Available [address] [place], [address] 04/04/2024 17:19:37 04/04/20 24 04/04/2024 COMPR EHENS JOSEPH METAB OLIC PANEL anion gap serpl-scnc 6.8 mmol/ L 3-11 normal Not Available [address] [place], [address] 04/04/2024 17:19:37 04/04/20 24 04/04/2024 COMPR EHENS JOSEPH METAB OLIC PANEL AST serpl-ccnc 16 U/L 15-37 normal Not Available [address] [place], [address] 04/04/2024 17:19:37 04/04/20 24 04/04/2024 COMPR EHENS JOSEPH METAB OLIC PANEL ALT serpl-ccnc 19 U/L 14-59 normal Not Available [address] [place], [address] 04/04/2024 17:19:37 04/04/20 24 04/04/2024 KATHERYN TIN ferritin serpl-mcnc 37 NG/mL 8-252 normal Not Available [address] [place], [address] 04/04/2024 17:19:38 04/04/20 24 04/04/2024 MAGNE SIUM magnesium serpl-mcnc 2.0 mg/dL 1.8-2. 4 normal Not Available [address] [place], [address] 04/04/2024 17:19:38 04/04/20 24 04/04/2024 TSH TSH serpl-acnc 1.47 uIU/m L 0.36-3 .74 normal NOTE: Supra -phys iolog ic doses of Bioti n(B7) may cause false negat joseph resul ts. Not Available [address] [place], [address] 04/04/2024 17:19:38 04/04/20 24 04/04/2024 FREE T4 T4 free serpl-mcnc 0.93 NG/dL 0.76-1 .46 normal Not Available [address] [place], [address] 04/04/2024 17:19:39 04/04/20 24 04/04/2024 VITAM IN B12 vit B12 serpl-mcnc 649 pg/mL 193-98 6 normal Not Available [address] [place], [address] 04/04/2024 17:19:39 04/04/20 24 04/04/2024 FOLAT E folate serpl-mcnc > 20.0 NG/mL 8.6-20 .0 high Not Available [address] [place], [address] 04/04/2024 17:19:40 04/04/20 24 04/04/2024 VITAM IN D 25 TOTAL 25(oh)D3+25( oh)D2 serpl-mcnc 89.7 NG/mL 30-100 normal Refer ence Guide lines : Defic ient: <10 ng/ml Insuf ficie nt: 10-30 ng/ml Suffi cient : 30-10 0 ng/ml Toxic : >100 ng/ml Not Available [address] [place], [address] 04/04/2024 17:19:40 04/04/20 24 04/05/2024 THYRO ID ANTIB ODIES thyroglobuli n antibody 72 U/mL <=60 abnormal Not Available [address] [place], [address] 04/06/2024 08:16:06 04/04/2004/05/2024 THYRO ID ANTIB ODIES thyroperoxid ase Ab serpl-acnc 42 U/mL <=60 Test perfo rmed or refer red by [facility] [address] [place] [place] [address] Not Available [address] [place], [address] 04/06/2024 08:16:06 04/04/20 24 04/04/2024 KIT/S PECIM EN kit/specimen SENT Not Available [address] [place], [address] 04/15/2024 08:49:39 06/07/20 24 06/07/2024 HEMOG LOBIN A1C hemoglobin A1C 5.3 % <5.7 Refer ence Range s <5.7 Neda l 5.7-6 .4% Predi abete s 6.5% or great er Diagn ostic for diabe judy (if confi rmed) Refer ences : 1. Ameri can Diabe judy Assoc iatio n. Clas sific ation and Diagn osis of Diabe judy. Diabe judy Care 2018; 2(Sup pleme nt 1):S1 3-s28 . Not Available [address] [place], [address] 06/07/2024 09:53:46 06/07/20 24 06/07/2024 LIPID 2 cholest serpl-mcnc 167 mg/dL <200 Not Available [address] [place], [address] 06/07/2024 11:05:19 06/07/20 24 06/07/2024 LIPID 2 trigl serpl-mcnc 93 mg/dL <150 Not Available [address] [place], [address] 06/07/2024 11:05:19 06/07/20 24 06/07/2024 LIPID 2 HDLC serpl-mcnc 41 mg/dL 40-60 Not Available [address] [place], [address] 06/07/2024 11:05:19 06/07/20 24 06/07/2024 LIPID 2 LDLC serpl calc-mcnc 108 mg/dL <100 high Natio nal Stephany stero l Educa tion Progr am (NCEP -ATPI II) class ifica tions : Stephany stero l <200 mg/dL William able Stephany stero l 200-2 39 mg/dL Borde rline High Stephany stero l >or=2 40 mg/dL High HDL <40 mg/dL Low HDL >or=6 0 mg/dL High LDL <100 mg/dL Optim al LDL 100-1 29 mg/dL Near Optim al/Ab ove Optim al LDL 130-1 59 mg/dL Borde rline High LDL 160-1 89 mg/dL High LDL >or=1 90 mg/dL Very High *The above refer ence range is for adult s 18 years or older . Not Available [address] [place], [address] 06/07/2024 11:05:19 06/07/20 24 06/07/2024 VITAM IN D 25 TOTAL 25(oh)D3+25( oh)D2 serpl-mcnc 70.7 NG/mL 30-100 normal Refer ence Guide lines : Defic ient: <10 ng/ml Insuf ficie nt: 10-30 ng/ml Suffi cient : 30-10 0 ng/ml Toxic : >100 ng/ml Not Available [address] [place], [address] 06/07/2024 11:05:19 06/07/20 24 06/10/2024 APOLI POPRO TEIN A1 B APO A-I serpl-mcnc 102 mg/dL >=140 abnormal Not Available [address] [place], [address] 06/11/2024 10:43:56 06/07/20 24 06/10/2024 APOLI POPRO TEIN A1 B APO B serpl-mcnc 90 mg/dL see commen t ----- ----- ----- ----R EFERE NCE VALUE ----- ----- ----- ----- ----- - William able: <90 Above William able: 90-99 Borde rline high: 100-1 19 High: 120-1 39 Very high: > or = 140 Test Perfo rmed by: [facility] [address], [place] [address] Lab Direc tor: Guero Ricketts nn Ph.D. ; CLIA# [id number] Not Available [address] , [place], [address] 06/11/2024 10:43:56 06/07/2006/10/2024 APOLI POPRO TEIN A1 B APO B/APO A-I serpl 0.9 see commen t abnormal ----- ----- ----- ----R EFERE NCE VALUE ----- ----- ----- ----- ----- - Lower Risk: <0.6 Adrian ge Risk: 0.6-0 .8 Highe r Risk: >0.8 Not Available [address] [place], [address] 06/11/2024 10:43:56 06/07/20 24 06/08/2024 HOMOC YSTEI NE hcys serpl-scnc 6.8 umol/ L 5.0-13 .9 Refer ence range may not apply to non-f astin g sampl es. It is not recom josue d that EDTA plasm a and serum from the same patie nt be used inter singh eably . Serum magdaleno ntrat ions have been obser sam to be up to 10% highe r than EDTA plasm a. Refer ence range may not apply to serum resul ts. Test perfo rmed or refer red by [facility] [address], [place] [address] Not Available [address] [place], [address] 06/11/2024 10:43:57 Result Notes None recorded. Problems Name Problem SNOMED Code Status Onset Date Resolution Date Notes Provider Name and Address Organization Details Recorded Time Benign essential hypertensio n 9231376 Active 2023 Paulina Reynoso ND [address], [place], [address] , [facility] 10:44:40 Essential hypertensio n 97336048 Active 2023 Paulina Reynoso ND [address] [place], [address], [facility] 10:57:54 Intermitten t palpitation s 850523142 Active 2023 Paulina Reynoso, [address], [address], [facility] 10:57:58 Iron deficiency without anemia 788321698 Active 2023 Paulina Reynoso, [address], [address], [facility] 11:13:53 Chronic constipatio n 496898114 Active 2023 Paulina Reynoso, [address], [address], [facility] 11:14:36 Hypervitami nosis D 55024074 Active 2023 Paulina Susiehawa, [address], [address] , [facility] 09:22:13 Bartonellos is 641035108 Active 2023 Paulina Reynoso, [address], [address] , [facility] 09:30:10 Palpitation s 46155384 Active 2023 Paulina Susiehawa, [address], [address] , [facility] 14:00:23 Nocturnal muscle spasm 60925485 Active 2023 Paulinaelvia Reynoso, [address], [address], [facility] 20:36:35 Dysmenorrhe a 807017139 Active 2023 Paulina Reynoso, [address], [address], [facility] 4 20:37:09 Euthyroid with thyroid antibodies 060050537 Active 2023 Paulina Reynoso ND [address] [place] [address], [address], [facility] 4 20:45:30 Hyperlipide opal 78778313 Active 2023 Paulina Reynoso ND [address] [place] [address], [address], [facility] 4 11:59:40 Gynecologic examination Active 2018 Paulina Reynoso ND [address] [place] [address], [address], [facility] 9 07:35:33 Vitamin D deficiency 33361848 Active 2018 Paulina Reynoso ND [address] [place] [address], [address], [facility] 9 07:35:34 Dietary management surveillanc e Active 2018 Paulina Reynoso ND [address] [place] [address], [address], [facility] 9 07:35:35 Anisocoria 22082671 Completed 201804/04/2019 Paulina Reynoso ND [address] [place] [address], [address], [facility] 9 20:36:02 Constipatio n 69570956 Active 2018 Paulina Reynoso ND [address] [place] [address], [address], [facility] 9 07:35:56 Vitamin B12 deficiency (non anemic) 41750676 Active 2018 Paulina Reynoso ND [address] [place] [address], [address], [facility] 9 07:39:41 Iron deficiency 68247015 Active 2018 Paulina Reynoso ND [address] [place] [address], [address], [facility] 9 07:39:42 Problem Notes None recorded. Procedures Surgical History Date Name Laterality Status Provider Name and Address Organization Details Recorded Time 12/26/2015 Date of Last Pap Smear completed Paulina Reynoso ND [address] [place] [address], [address], [facility] 12/29/2018 14:53:40 Imaging Results None recorded. Procedure Notes None recorded. Medical Equipment None Reported. Allergies Allergen ID Allergen Name Allergen Category Reaction Reaction Severity Criticality Documentation Date Start Date Code Code System Note Provider Name and Address Organization Details Recorded Time 2294 Levaquin medicatio n other moderate Not available 12/29/2018 58718 2 RxNorm Paulina Reynoso ND [address] [place] [address], [address], [facility] 9 14:53:00 2295 saffron extract food,medi cation other moderate Not available 12/29/2018 96026 04 RxNorm Paulina Reynoso ND [address] [place] [address], [phone], [facility] 9 14:53:00 2296 tetracycl ine medicatio n nausea moderate Not available 12/29/2018 87929 RxNorm Paulina Reynoso ND [address] [place] [address], [phone], [facility] 14:53:00 2297 lactase medicatio n abdominal pain diarrhea nausea moderate moderate mild Not available 12/29/20181984 41708 RxNorm Paulina Reynoso ND [address] [place] [address], [phone] 1, [facility] 9 14:53:00 [...] for 1 month then 1 cap 2xday 09/24/2 019 active Not Available Not Available Not [...] Available Not Available No t Available Vitals Date Recorded Body weight Body mass index (BMI) Body height Heart rate Systolic blood pressure Diastolic blood pressure Systolic blood pressure Diastolic blood pressure Provider Name and Address Organization Details Last Updated DateTime 4 19594.9 3 g 27.8 kg/m2 165.1 cm 100 /min 128 mm[Hg] 76 mm[Hg] 99 mm[Hg] 76 mm[Hg] Paulina Reynoso ND [address] [place] [address], [phone] , [facility] [employer] [facility] 4 11:03:59 Date Recorded Body height Systolic blood pressure Diastolic blood pressure Provider Name and Address Organization Details Last Updated DateTime 06/14/2024 165.1 cm 108 mm[Hg] 70 mm[Hg] Paulina Reynoso ND [address] [place] [address], [phone] [employer] [facility] 06/14/2024 11:06:21 Date Recorded Body height Heart rate Oxygen saturation Oxygen saturation in Arterial blood by Pulse oximetry Body mass index (BMI) Body weight Systolic blood pressure Diastolic blood pressure Provider Name and Address Organization Details Last Updated DateTime 5 165.1 cm 70 /min 98 % 98 % 28.3 kg/m2 75813.7 g 122 mm[Hg] 68 mm[Hg] Paulina Reynoso ND [address] [place] [address], [phone] , [facility] [employer] [facility] 5 11:32:24 Social History Question Answer Notes LastModified by Organizat ion Details LastModified Time Tobacco Smoking Status Never Smoker Paulina Reyonso ND [address] [place] [address], [phone], [facility] [employer] [facility] 12/29/2018 14:54:24 What Is Your Level [...] Cancer N Blood Transfusion N COPD N Depression N Lung Disease N Hypothyroidism N Defects or Inherited Disease N Developmental or Behavioral Disorders N Breast Problem N Difficulty Swallowing N Anesthesia Complications N Meniere's disease N Anxiety Disorder N Muscle, Joint, or Bone Problems N Obesity N Vision or Eye Problems N Arthritis N Polyps N Infertility N Mental Disorder N Cancer N Varicosities N Stroke N Endometriosis N Bladder or Kidney Problems N High Cholesterol N Liver Disease N Headaches N Fibromyalgia N Kidney Disease N Allergies/Hayfever N Heart [...] Time HPV,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
--- OUTSIDE RECORDS SUMMARY | 2024-08-08 01:33 | XMS_ITS | Encounter Summary ---
Author Organization [facility] Address [address] [place] [address] Care Team Providers Care Trademark Affixer Name Role Phone Unavailable Primary Care Provider Unavailabl e Encounter Details Date Type Department Care Team (Late st Contact Info) Description 06/07/2024 Lab Requisition [facility] Pathology & Laboratory Medicine - [facility] [address] [place] [address] Outr Resulting Lab, Provider Social History Tobacco [...] Diagnosis Comments HOMOCYSTEINE Routine 06/07/2024 9:38 EST documented in this encounter Results * HOMOCYSTEINE (06/07/2024 9:38 EST) Homocysteine 6.8 5.0 - 13.9 umol/L 06/08/2024 10:19 EST [facility] Blood VENOUS BLOOD / Unknown 06/07/2024 9:38 EST 06/07/2024 20:43 EST Narrative [facility] - 06/08/2024 10:19 EST [...] & BLOOD GA S ORDERABLES Final Result [facility] [address] [place] [address] documented in this encounter Visit Diagnoses Not on filedocumented in this encounter
--- OUTSIDE RECORDS SUMMARY | 2024-08-08 01:33 | XMS_ITS | Encounter Summary ---
Author Organization [facility] Address [address] [place] [address] Care Team Providers Care Cargo And Container Inspector Name Role Phone Unavailable Primary Care Provider Unavailabl e Encounter Details Date Type Department Care Team (Late st Contact Info) Description 04/05/2024 Lab Requisition [facility] Pathology & Laboratory Medicine - [facility] [address] [place] [address] Outr Resulting Lab, Provider Social History Tobacco [...] Procedure Name Priority Date/Time Associated Diagnosis Comments THYROID ANTIBODIES Routine 04/04/2024 14 :55 EDT documented in this encounter Results * (ABNORMAL) THYROID ANTIBODIES (04/04/2024 14:55 EDT) Anti-Thyroglobulin 72(H) <=60 U/mL 2023 19:02 EDT [facility] Thyroperoxidase Ab 42 <=60 U/mL 2023 19:02 EDT [facility] Blood VENOUS BLOOD / Unknown 04/04/2024 14:55 EDT 04/05/2024 17:43 EDT us Provider Outr Resulting Lab CHEMISTRY & BLOOD GA S ORDERABLES Final Result [facility] [address] [place], [place] [id number] documented in this encounter Visit Diagnoses Not on filedocumented in this encounter
--- OUTSIDE RECORDS SUMMARY | 2024-08-08 01:33 | XMS_ITS | Continuity of Care Document ---
Author Organization [place] - [facility] [employer], MAIN OFFICE [place] [address] Assessment Encounter Date Assessment Date Assessment LastModified by Organization Details LastModified Time 06/14/2024 06/14/2024 cardiovascular risk- is high with [...] breath and/or dizziness. Not available 06/14/2024 18:40:38 Plan of Treatment Reminders Order Date Submit Date Provider Last Modified By Organization Details Last Modified Time Details Appointments ESTABLISH ED PATIENT 45 2024 11:45A Melissa Reynoso ND Not available Not available Not available Lab None recorded. Referral None recorded. Procedures None recorded. Surgeries None recorded. Imaging None recorded. Medication Orders None recorded. Patient TargetsNo targets recorded. Patient Instructions Encounter Date Encounter Id Patient Instructions Last Modified By Organization Details Last Modified Time 06/14/2024 [id number] palpitations: care instructions Not available 06/14/2024 18:42:52 [...] all without equipment- Not available 06/14/2024 11:59:32 Reason for Referral None Reported. Problems Name Problem SNOMED Code Status Onset Date Resolution Date Notes Provider Name and Address Organization Details Recorded Time Benign essential hypertensio n 4540479 Active [address], [address], [facility] 10:44:40 Essential hypertensio n 77739577 Active 2023 [address], [address], [facility] 4 10:57:54 Intermitten t palpitation s 651355162 Active 2023 [address], [address], [facility] 4 10:57:58 Iron deficiency without anemia 336084968 Active 2023 [address], [address], [facility] 11:13:53 Chronic constipatio n 883700910 Active 2023 [address], [address], [facility] 11:14:36 Hypervitami nosis D 48225703 Active 2023 [address], [address], [facility] 4 09:22:13 Manuelito is 447026777 Active 2023 Paulina Reynoso BISHOP [address] [place] [address], [address], [facility] 4 09:30:10 Palpitation s 48138585 Active 2023 Paulina SusiehawaBISHOP [address] [place] [address], [address], [facility] 4 14:00:23 Nocturnal muscle spasm 30836656 Active 2023 Paulina Edgardo BISHOP [address] [place] [address], [address], [facility] 4 20:36:35 Dysmenorrhe a 150137842 Active 2023 Paulinalatoya Reynoso ND [address] [place] [address], [address], [facility] 4 20:37:09 Euthyroid with thyroid antibodies 302108716 Active 2023 Paulinalatoya Reynoso BISHOP [address] [place] [address], [address] , [facility], [facility] 20:45:30 Hyperlipide opal 33869709 Active 2023 Paulina Reynoso ND [address] [place] [address], [address], [facility], [facility] 4 11:59:40 Gynecologic examination Active 2018 Paulinalatoya Reynoso ND [address] [place] [address], [address], [facility], [facility] 9 07:35:33 Vitamin D deficiency 61552122 Active 2018 Paulinalatoya Reynoso ND [address] [place] [address], [address], [facility], [facility] 9 07:35:34 Dietary management surveillanc e Active 2018 Paulina Reynoso ND [address] [place] [address], [address], [facility] 9 07:35:35 Anisocoria 66301598 Completed 201804/04/2019 Paulina Reynoso ND [address] [place] [address], [address], [facility] 9 20:36:02 Constipatio n 01930835 Active 2018 Paulina Reynoso ND [address] [place] [address], [address], [facility] 9 07:35:56 Vitamin B12 deficiency (non anemic) 24473499 Active 2018 Paulina Reynoso ND [address] [place] [address], [address], [facility] 9 07:39:41 Iron deficiency 19270907 Active 2018 Paulina Reynoso ND [address] [place] [address], [address], [facility] 9 07:39:42 Problem Notes None recorded. Procedures Surgical History Date Name Laterality Status Provider Name and Address Organization Details Recorded Time 12/26/2015 Date of Last Pap Smear completed Paulina Reynoso ND [address] [place] [address], [address], [facility] 12/29/2018 14:53:40 Imaging Results None recorded. Procedure Notes None recorded. Medical Equipment None Reported. Allergies Allergen ID Allergen Name Allergen Category Reaction Reaction Severity Criticality Documentation Date Start Date Code Code System Note Provider Name and Address Organization Details Recorded Time 2294 Levaquin medicatio n other moderate Not available 12/29/2018 79460 2 RxNorm Paulina Reynoso ND [address] [place] [address], [address] , [facility] 9 14:53:00 2295 saffron extract food,medi cation other moderate Not available 12/29/2018 99752 04 RxNorm Paulina Reynoso ND [address] [place] [address], [address], [facility] 9 14:53:00 2296 tetracycl ine medicatio n nausea moderate Not available 12/29/2018 68861 RxNorm Paulina Reynoso BISHOP [address] [place] [address], [address], [facility] 9 14:53:00 2297 lactase medicatio n abdominal pain diarrhea nausea moderate moderate mild Not available 12/29/20181984 17662 RxNorm Paulina Reynoso ND [address] [place] [address], [address], [facility] 9 14:53:00 Medications Name Sig Start Date [...] No t Available Vitals Date Recorded Body height Systolic blood pressure Diastolic blood pressure Provider Name and Address Organization Details Last Updated DateTime 06/14/2024 165.1 cm 108 mm[Hg] 70 mm[Hg] Paulina BISHOP Reynoso [address] [place] [address], [phone] 06/14/2024 11:06:21 Social History Question Answer Notes LastModified by Organizat ion Details LastModified Time Tobacco Smoking Status Never Smoker Paulina BISHOP Reynoso [address] [place] [address], [address], [facility] 12/29/2018 14:54:24 What Is Your Level Of [...] Supplements Vitamin C And Calcium/Vitami n D kks1 Information not available 12/29/2018 Sex: Unknown Functional [...] History Condition Response Coronary Artery Disease N Gout N Other N Blood Diseases N Kidney Stones N Hyperthyroidism N Blood Transfusion N Breast Cancer N COPD N Depression N Lung Disease [...] N Heart Disease N Pulmonary Embolism N Chronic Ear Infections N Pre-Eclampsia N Hypertension N Chicken Pox Y Autism Spectrum Disorder (ASD) N Osteoporosis N Thrombophilias N Gynecological History Statement/Question Response [...] Details Recorded Time HPV, unspecified formulation 6 breonna eRynoso ND [address] [place] [address], [facility] 12/29/2018 14:55:38 polio, unspecified formulation 1 completed Paulina Reynoso ND [address] [place] [address], [facility] 12/29/2018 14:55:38 tetanus toxoid, unspecified formulation 0 breonna Reynoso ND [address] [place], [place] [address], [facility] 12/29/2018 14:55:38 Meningococcal C/Y-HIB PRP 3 completed Paulina Reynoso ND [address] [place], [place] [address], [facility] 12/29/2018 14:55:38 HPV, unspecified formulation 6 breonna Reynoso ND [address] [place], [place] [address], [facility] 12/29/2018 14:55:38 MMR 0 breonna Reynoso ND [address] [place] [address], [address], [facility] 12/29/2018 14:55:38 DTaP 8 completed Paulina Reynoso BISHOP [address] [place] [address], [address], [facility] 12/29/2018 14:55:38 Past Encounters Encounter ID Performer Location Encounter Start Date Encounter Closed Date Diagnosis/Indication Diagnosis SNOMED-CT Code Diagnosis ICD10 Code Diagnosis Note [id number] Paulina ReynosoBISHOP MAIN OFFICE [address] [place] [address] 05/17/2024 13:17:05 05/17/2024 14:13:16 Palpitations 34320112 R00.2 Nocturnal muscle spasm 51964056 G47.62 Dysmenorrhea 635986284 N 94.6 Euthyroid with thyroid antibodies 294624156 E07.81 [id number] Paulina BISHOP Reynoso MAIN OFFICE [address] [place] [address] 06/14/2024 10:43:18 06/14/2024 11:39:23 Hyperlipidemia 14298677 E78.5 Dietary ma nagement surveillance 760075298 Z71.3 Palpitations 34966952 R0 0.2 Health Concerns Section Related Observation LastModified by Organization Detai ls LastModified Time None Recorded Concern Status LastModified by Organization Details LastModified Time None Recorded Payers Encounter Date Sequence Insurance Name Policy Number Policy Martinez Covered Member ID Martinez Member ID Guarantor Name 06/14/2024 1 [facility] (MEDICAID) Lissy Arriaza [id number] Lissy Arriaza Notes Date Note Type Note Provider Name and Address Organization Details Recorded Time 06/14/2024 text/html menstrual issue she feels is causing heart palitatiopn at nightshe found a chart before tinctures- heart rate then 90-100now its in the 80s when it xxqtyxxd-3-6 days nbefore period- she charted heart palps-sat 06/04 period bnegan 07 june- discussed labs and risk for CVD apo A is low and high Apo B- managemnt discussed thyroid support- taking we will revisit thyroid antibodies after heart papl and cholesterol and diet are addressed and imporved-discussed lifestyle and pplan to lower choleserol and increase good decrease bek-lpfPPY-sfpce paplps are fewer and further between and no high blood pressure-when she sleeps she is usually pulse of 60 and now 80 feels ligh- maternal grandmother and dad have htn-she doesnt know about cholesterol-matern al grandfather had multiple heart attacks diet mostly beef not really porklots of cheese and milk products-ok with fish and beanswanting to exercise has been sedentary-discusse d lifestyle managelmtn and diseas prevention mostly pertaining to [facility] Paulina Reynoso, ND [address] [facility], [place], [address], [place] [facility] 06/14/2024 18:43:03 OBGyn Episode No OBEpisode recorded.
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
--- OUTSIDE RECORDS SUMMARY | 2024-08-08 01:33 | XMS_ITS | Referral Summary ---
Author Organization [facility] Address [address] [place] [address] Care Team Providers Care Video Coordinator Name Role Phone Unavailable Primary Care Provider Unavailabl e Encounters Date Type Department Care Team Description 06/07/2024 Lab Requisition [facility] Pathology & Laboratory Medicine - [facility] [address] [place] [address] Outr Resulting Lab, Provider from Last 3 Months Social History Tobacco Use Types Packs/Day Years Used Date Smoking Tobacco: Never Assessed Comments Unknown Sex and Gender Information Value Date Recorded Sex Assigned at Not on file Legal Sex Female 12:24 EDT Gender Identity Not on file Sexual Orientation Not on file Plan of Treatment Not on file Procedures Procedure Name Priority Date/Time Associated Diagnosis Comments HOMOCYSTEINE Routine 06/07/2024 9:38 EST from Last 3 Months Results * HOMOCYSTEINE (06/07/2024 9:38 EST) Homocysteine 6.8 5.0 - 13.9 umol/L 06/08/2024 10:19 EST [facility] Blood VENOUS BLOOD / Unknown 06/07/2024 9:38 EST 06/07/2024 20:43 EST Narrative [facility] - 06/08/2024 10:19 EST Reference [...] & BLOOD GA S ORDERABLES Final Result [facility] [address] [place], [place] [address] from Last 3 Months
[2024-08-08 15:09] LABS: Ferritin 45 ng/mL (8-252); Folate 19.3 ng/mL (8.6-20.0); Vitamin B12 747 pg/mL (193-986)
[2024-08-08 15:14] LABS: Iron 137 ug/dL (50-170); Total Iron Binding Capacity 299 ug/dL (250-450); Transferrin Sat 46 % (15-50)
[2024-08-08 22:41] LABS: Progesterone 4.6 ng/mL (See Table)
[2024-08-10 09:02] LABS: DHEA Sulfate 304 ug/dL (75-410)
[2024-08-11 10:05] LABS: Estradiol, Mass Spectrometry 68 pg/mL; Estrone 69 pg/mL
[2024-08-16 15:39] LABS: Testosterone, Free 0.49 ng/dL (<0.13-1.00); Testosterone, Total 27 ng/dL (8-60)
== END 2024-08-08 01:21 | disposition home or self-care (01) ==
PROVIDERS: PCP Naturopath; Visit Provider Naturopath
DX: N94.6 Dysmenorrhea, unspecified (principal); E61.1 Iron deficiency
CPT/HCPCS: 36415; 82627; 84402; 84403; 82607; 82626; 82670; 82679; 82728; 82746; 83540; 83550; 84144

== ENCOUNTER 2024-08-10 11:25 | Outpatient (REF) | payer MEDICAID, SELFPAY ==
--- NOTE | 2024-08-10 10:15 | PAPFT_PTH ---
PATIENT: Lissy Arriaza LOC: [facility] U#:[id number] AGE/SX: 38/F ROOM: RE08/10/[address]: Luz Elena Servin NP : 1985 BED: DIS: 08/10/2024 SPEC #: [id number] RECD: 08/10/24 12:41 STATUS: MABEL RELincoln #: [id number] LOLY: 08/10/24 10:[address]: Luz Elena Servin NP DEPT: [facility] Cytology RECD BY: Pura Coy ENTERED: 08/10/24 12:41 SP TYPE: PAPFT OTHR DR: Paulina Reynoso Tissues: 1 - CX/ENDOCX FOR PAP SMEARS Procedures: PAP THIN PREP/UVM Screening HPV DNA PROBE Comments: [id number] (HPV 16 & 18/45)
== END 2024-08-10 11:26 | disposition home or self-care (01) ==
LOC: LBN 11:25
PROVIDERS: PCP Naturopath; Visit Provider Nurse Practitioner Women's Health
DX: Z01.419 Encounter for gynecological examination (general) (routine) without abnormal findings (principal); Z12.4 Encounter for screening for malignant neoplasm of cervix
CPT/HCPCS: 88142; 87624

== ENCOUNTER 2024-09-02 07:46 | Emergency (ER) | payer MEDICAID, SELFPAY ==
[2024-09-02] VITALS (37 sets, daily range): BP systolic 91–136; BP diastolic 51–76; PULSE 52–93; RESP 6–25; TEMP 36.5; O2SAT 97–100
--- NOTE | 2024-09-02 07:45 | RT.EKG_ITS ---
APPROVED REPORT Exam: Resting ECG Reason for Exam: Chest pain Patient Location: E HR:80 bpm ECG Measurements Heart Rate 80 AXIS NC 129 P 58 QRSd 81 QRS 40 QT 359 T 26 QTc 416 Conclusion Sinus rhythm...normal P axis, V-rate 60- 99 I have reviewed and interpreted ECG and agree with software generated interpretation.
--- NOTE | 2024-09-02 08:23 | ED.GENADUL_ITS ---
Discharge Plan Disposition Patient Disposition: Home Condition: Good Discharge Details Clinical Impression: Palpitations Primary Care Provider: Paulina Reynoso ED Provider: Mario Alberto Ramirez Home Meds and New Rx's Prescriptions: No Action Saccharomyces boulardii [Daily Probiotic (S. boulardii)] 250 mg capsule 250 mg PO DAILY ascorbic acid (vitamin C) [Vitamin C] 125 MG tablet,chewable 125 mg PO BID cholecalciferol (vitamin D3) 125 mcg/0.5 mL (5K unit/0.5mL) drops 5 mcg PO DAILY vitamin B complex [Balanced B-50] Tablet 1 tab PO DAILY ferrous sulfate [Feosol] 325 mg (65 mg iron) tablet 325 mg PO DAILY Discharge Instructions Instructions: Palpitations ED Additional Instructions: At this time your laboratory workup is returned reassuring. Your electrolytes are normal, there is no evidence of blood clot or significant heart strain on your initial and repeat testings. Thyroid functionality is normal. As we discussed together you still do need additional testing and evaluation. We have placed a referral for a Holter monitor. Please follow-up closely with this for continued monitoring. Additionally, there may be a component of a viscerosomatic reflex, where chronic indigestion, esophageal spasm, or esophageal irritation is causing some of your back pain or symptoms of palpitations. Please perform the food diary as we discussed together, monitor your intake closely and evaluate for any trends that could be causing your symptoms. It would be reasonable to consider transitioning away from spicy food or tomato-based products for the next 1 to 2 months to see if this makes a change. If you notice any worsening of your symptoms, or any new symptoms such as vomiting, diarrhea, fever, chills, shortness of breath, chest pain, numbness, weakness, or fainting , please return immediately to the emergency department for reevaluation. Please follow up with your primary care provider as soon as possible for reassessment and reevaluation. As always, it was a pleasure participating in your medical care today. Referrals: Paulina Reynoso [Primary Care Provider] - Discharge Orders Other Ambulatory Orders: Holter Monitor (Routine) Timeframe: 1 Week Facility: [facility] - Location: Respiratory Therapy Ordered By: Mario Alberto Ramirez [facility] General Date/Time Provider Initiated Documentation: 09/02/24 07:51 . HPI Narrative: 38-year-old female with no significant past medical history who presents today for evaluation of symptoms of palpitations. Patient has had a previous episode of atypical palpitation like symptoms about 9 months ago. At that time she was seen and evaluated here, workup was notably reassuring. She had some tick bites at that time, and tick panel was drawn, all of which have returned negative. She did visit her cable television line technician later, and had further testing for antibodies. Patient states that she was positive for Bartonella, and was started on a Lyme treatment tincture after this. She has been taking that since then. Over the past week the patient admits to increased episodes of palpitations. She states that they last for few minutes to a few hours. She describes it as a brief episode of sharpness in her chest, followed by feeling like my heart is working extra hard and I can feel my pulse throughout my body. Last night she had an episode that lasted for 2 to 3 hours and started at 1 AM. She states that most of these episodes occur in the evening or early director of early childhood before she gets up, but then do not continue throughout the day. She has eliminated caffeine from her diet, she is currently not on a fruits and vegetables diet for the past few weeks. She denies any IV or illicit drugs, cocaine or meth use. She did have a single dark chocolate yesterday, but denies any excessive chocolate intake. No energy drinks. No other complaints. She denies any syncope. Sometimes she does feel slightly lightheaded occasionally. No family history of sudden during exertion at a young age. No other complaints at this time. She has not had a Holter monitor. Denies PE risk factors such as recent long car rides, immobilization, recent surgery, prior history of DVT or PE, family history of PE or DVT, morbid obesity, exogenous estrogen and smoking, hemoptysis, history of cancer. Additionally she has noticed that sometimes the symptoms occur slightly more closely to her menstrual cycle. Related Data Home Medications ?Medication ?Instructions ?Recorded ?Confirmed ascorbic acid (vitamin C) 125 mg 125 mg PO BID 09/26/14 08/10/24 chewable tablet (Vitamin C) cholecalciferol (vitamin D3) 5 mcg PO DAILY 01/27/24 08/10/24 ferrous sulfate 325 mg (65 mg 325 mg PO DAILY 01/27/24 08/10/24 iron) tablet (Feosol) vitamin B complex (Balanced B-50 1 tab PO DAILY 01/27/24 08/10/24 tablet) Saccharomyces boulardii 250 mg 250 mg PO DAILY 08/10/24 08/10/24 capsule (Daily Probiotic (S. boulardii)) Allergies Allergy/AdvReac Type Severity Reaction Status Date / Time levofloxacin (From Levaquin) Allergy Unknown Other (See Unverified 08/10/24 09:45 Comment) tetracycline Allergy Unknown Other (See Unverified 08/10/24 09:45 Comment) General Stated Complaint: Palpitatns MARGARITA: 3 Exam Narrative Exam Narrative: 1.Const: Well-nourished, Well-developed, appearing stated age 2.Eyes: PERRL, no conjunctival injection, and symmetrical lids. 3.ENT: Atraumatic external nose and ears. Moist MM. Neck: Symmetric, trachea midline, No thyromegaly. 4.CVS: +S1/S2, Peripheral pulses 2+ and equal in all extremities. Brisk capillary refill in all extremities. 5.RESP: Unlabored respiratory effort. Clear to auscultation bilaterally. No wheezes rales or rhonchi 6.GI: Soft, Nontender/Nondistended, No hepatosplenomegaly. No guarding or rebound. 7.MSK: Normocephalic/Atraumatic, Extremities w/o deformity or ttp No cyanosis or clubbing, Normal movement of all extremities 8.Skin: Warm, Dry. No rashes or lesions. 9.Neuro: orchard sprayer II-XII grossly intact. Sensation grossly intact, no focal neurologic deficits. 10.Psych: (AAO) x3. Appropriate mood and affect Course Vital Signs Vital signs: Vital Signs Temperature 36.5 C 09/02/24 07:47 Pulse 93 H 09/02/24 07:47 Respiratory Rate 25 H 09/02/24 07:47 Blood Pressure 136/76 09/02/24 07:47 Pulse Oximetry 100 09/02/24 07:47 Temperature 36.5 C 09/02/24 07:47 Temperature Source Tympanic 09/02/24 07:47 Pulse 93 H 09/02/24 07:47 Respiratory Rate 25 H 09/02/24 07:47 Blood Pressure 136/76 09/02/24 07:47 Pulse Oximetry 100 09/02/24 07:47 Oxygen Delivery Method Room Air 09/02/24 07:47 Oxygen Flow Rate 0 09/02/24 07:47 Medical Decision Making 38-year-old female with no significant past medical history who presents today for evaluation of symptoms of palpitations. Patient has had a previous episode of atypical palpitation like symptoms about 9 months ago. At that time she was seen and evaluated here, workup was notably reassuring. She had some tick bites at that time, and tick panel was drawn, all of which have returned negative. She did visit her cable television line technician later, and had further testing for antibodies. Patient states that she was positive for Bartonella, and was started on a Lyme treatment tincture after this. She has been taking that s nicho then. Over the past week the patient admits to increased episodes of palpitations. She states that they last for few minutes to a few hours. She describes it as a brief episode of sharpness in her chest, followed by feeling like my heart is working extra hard and I can feel my pulse throughout my body. Last night she had an episode that lasted for 2 to 3 hours and started at 1 AM. She states that most of these episodes occur in the evening or early director of early childhood before she gets up, but then do not continue throughout the day. She has eliminated caffeine from her diet, she is currently not on a fruits and vegetables diet for the past few weeks. She denies any IV or illicit drugs, cocaine or meth use. She did have a single dark chocolate yesterday, but denies any excessive chocolate intake. No energy drinks. No other complaints. She denies any syncope. Sometimes she does feel slightly lightheaded occasionally. No family history of sudden during exertion at a young age. No other complaints at this time. She has not had a Holter monitor. Denies PE risk factors such as recent long car rides, immobilization, recent surgery, prior history of DVT or PE, family history of PE or DVT, morbid obesity, exogenous estrogen and smoking, hemoptysis, history of cancer. Additionally she has noticed that sometimes the symptoms occur slightly more closely to her menstrual cycle. Patient's physical exam demonstrates well-appearing female, no evidence of ectopy on monitor. EKG is benign with no evidence of Brugada, epsilon wave or delta wave. No tacky dysrhythmia or significant evidence of conduction abnormality. Intervals normal. Differential is broad, but includes PVCs, SVT, A-fib. Electrolyte abnormalities certainly of concern. Thyroid dysfunction of concern. PE less likely but on the differential. Doubt Lyme especially in the context of her negative testing and no new tick bites. Will evaluate for these concerning etiologies. Will schedule for outpatient Holter monitor. Will monitor closely and reassess. Will gently rehydrate. 11 AM Bedside echo shows excellent ejection fraction, no pericardial effusion, no evidence of tamponade. Normal wall motion throughout, no evidence of left atrial or right ventricular enlargement. Laboratory workup shows normal thyroid function, normal serial troponins, normal proBNP suggesting no signs of heart strain. Electrolytes normal, magnesium normal, no white count bandemia or left shift. During the patient's time here, there has been no evidence of ectopy or dysrhythmia. No evidence of life-threatening abnormality at this time. D-dimer negative, no evidence to suggest PE. Patient is stable, and I do feel that she can be discharged home with continued outpatient follow-up. We have placed order for 48-hour Holter monitor. Additionally I did discuss with the patient that there may be components of an esophageal spasm, chronic GI irritation, chronic mild stomach ulcer that could be a component of her symptoms as it occurs at night after she has been laying down, she does have some chronic back tightness which could be reflective of a viscerosomatic reflex dental detail representative of a upper GI etiology. Regardless I still do feel that she would benefit from further evaluation with cardiac monitoring. We did recommend dietary changes, avoiding spicy foods or tomato-based products as well as a food diary to evaluate for other potential concerning components. She is already functioning on a gluten-free diet. Discussed red flags for which to return. I have extensively reviewed the treatment plan and discharge instructions with the patient. I have addressed all patient concerns at this time. The patient was made aware of what symptoms to monitor for that would warrant a return to the emergency department. Discussed the plan with the patient, they demonstrate verbal understanding and agreement with our assessment and plan at this time. The documentation in this chart was dictated using [employer] dictation software. Please excuse any dictation errors. Quality:SDOH Health Related Social Needs: No Data to Display PFSH All Active Problems (Updated 09/02/24 @ 09:29 by Mario Alberto Ramirez DO) Palpitations (Acute) Personal history of cervical dysplasia (Acute 10/12/15) 2000 [place] Medical History (Updated 09/02/24 @ 09:29 by Mario Alberto Ramirez DO) No pertinent past medical history Surgical History (Updated 08/10/24 @ 10:53 by Luz Elena Servin NP) No pertinent past surgical history Family History (Updated 08/10/24 @ 10:31 by Willa Castellano) Father Well adult Mother Well adult Other Heart disease Hypertension Social History (Updated 08/10/24 @ 10:30 by Willa Castellano) Smoking/Tobacco Use Status: Never Second Hand Exposure: No Smoking risk assessment performed?: Yes Alcohol Intake: never Drug use: Never Substance use type: does not use current occupation: [employer] Current gender identity: female What type of physical activity do you participate in: regular exercise Duration: 15-30 minutes/day Frequency: 3-4 times per week Seatbelt use: always Helmet use: Yes Do you feel safe at home: Yes Do you feel safe in your relationship?: Yes Female Reproductive History Menstrual Age of Menarche: 12 Duration of menses: 6-7 days control method: abstinence History History 0 Para Hx # Term Pregnancies Multiple births Hx # Pregnancies Ectopic pregnancies AB induced Hx Number of Living Children AB spontaneous POCUS Exam (ED) Limited Cardiac Exam DATE OF EXAM: 09/02/24 TIME OF EXAM: 09:02 PROVIDER THAT PERFORMED THE STUDY: Mario Alberto Ramirez IS THIS A REPEAT EXAM DURING THIS ENCOUNTER: no REASON FOR EXAM: Chest pain VISUALIZED STRUCTURES: Left atrium, Left ventricle, Right ventricle, Aortic valve, Mitral valve and Interventricular septum VIEW OBTAINED: Parasternal long-axis and Parasternal short-axis PERTINENT FINDINGS/IMPRESSION: No apparent abnormalities Exam complete
[2024-09-02 08:41] LABS: Abs Immature Grans 0.01 10^3/uL (0.0-0.06); Absolute Basophil Count 0.02 10^3/uL (0.0-0.2); Absolute Eosinophil Count 0.29 10^3/uL (0.0-0.7); Absolute Lymphocyte Count 1.54 10^3/uL (1.2-3.4); Absolute Monocyte Count 0.44 10^3/uL (0.1-0.8); Absolute Neutrophil Count 3.28 10^3/uL (1.2-6.7); Basophils % 0.4 %; Eosinophils % 5.2 %; HCT 38.8 % (36.0-46.0); HGB 13.1 g/dL (11.2-15.7); Immature Grans % 0.2 %; Lymphocytes % 27.6 %; MCH 30.1 pg (27.0-33.0); MCHC 33.8 % (32.0-36.0); MCV 89 fL (80-95); MPV 9.7 fL (8.0-11.0); Monocytes % 7.9 %; Neutrophils % 58.7 %; Platelet Count 242 10^3/uL (130-400); RBC 4.35 10^6/uL (3.93-5.22); RDW 12.6 % (11.7-14.6); RDW-SD 41.2 fL; WBC 5.58 10^3/uL (4.4-10.8)
[2024-09-02] MEDS: Normal Saline 1,000 ML 1000 ML IV (08:44)
[2024-09-02] MEDS: Normal Saline Flush 10 ML SYR IVP (08:45)
[2024-09-02 09:08] LABS: D-Dimer 319 ng/mlFEU (<500)
[2024-09-02 09:15] LABS: ALT 22 U/L (14-59); AST 16 U/L (15-37); Albumin 3.5 g/dL (3.4-5.0); Alkaline Phosphatase 53 U/L (46-116); Anion Gap 9.8 mmol/L (3-11); BUN 11 mg/dL (7-18); Bilirubin, Total 0.54 mg/dL (0.2-1.0); CO2 27.2 mmol/L (21.0-32.0); CREATININE 0.8 mg/dL (0.55-1.02); Calcium 9.1 mg/dL (8.5-10.1); Chloride 108 mmol/L (98-107); Estimated GFR 96.06 (mL/min/1.73m2); Glucose 92 mg/dL (74-106); NT-proBNP 110 pg/mL (<300); Potassium 4.1 mmol/L (3.5-5.1); Sodium 145 mmol/L (136-145); Total Protein 6.7 g/dL (6.4-8.2); Troponin I 5 ng/L (<or=51)
[2024-09-02 09:59] LABS: Troponin I 6 ng/L (<or=51)
== END 2024-09-02 11:28 | disposition home or self-care (01) ==
PROVIDERS: Emergency Provider Student in an Organized Health Care Education/Training Program; PCP Naturopath
DX: R00.2 Palpitations (principal)
CPT/HCPCS: 36415; 80053; 93005; 93308; 96360; 99285; 83735; 83880; 84443; 84484; 85025; 85379; 93010; 99284

== ENCOUNTER 2025-05-22 02:07 | Outpatient (CLI) | payer MEDICAID, SELFPAY ==
[2025-05-22 12:13] LABS: Abs Immature Grans 0.02 10^3/uL (0.0-0.06); HCT 39.0 % (36.0-46.0); HGB 12.8 g/dL (11.2-15.7); Immature Grans % 0.3 %; MCH 29.6 pg (27.0-33.0); MCHC 32.8 % (32.0-36.0); MCV 90 fL (80-95); MPV 9.2 fL (8.0-11.0); Platelet Count 275 10^3/uL (130-400); RBC 4.33 10^6/uL (3.93-5.22); RDW 13.3 % (11.7-14.6); RDW-SD 44.4 fL; WBC 5.99 10^3/uL (4.4-10.8)
[2025-05-22 13:13] LABS: ALT 16 U/L (10-49); AST 19 U/L (<34); Albumin 4.0 g/dL (3.4-5.0); Alkaline Phosphatase 54 U/L (46-116); Anion Gap 5.5 mmol/L (3-11); BUN 11 mg/dL (9-23); Bilirubin, Total 0.50 mg/dL (0.2-1.2); CO2 30.5 mmol/L (20.0-31.0); Calcium 8.6 mg/dL (8.3-10.6); Chloride 106 mmol/L (98-107); Glucose 76 mg/dL (74-106); Iron 137 ug/dL (50-170); Potassium 4.4 mmol/L (3.5-5.1); Sodium 142 mmol/L (136-145); Total Iron Binding Capacity 297 ug/dL (250-425); Total Protein 6.4 g/dL (5.7-8.2); Transferrin Sat 46 % (15-50)
[2025-05-22 13:14] LABS: Vitamin D 25 Total 54 ng/mL (30-100)
[2025-05-22 13:15] LABS: Vitamin B12 636 pg/mL (211-911)
[2025-05-22 13:16] LABS: Ferritin 25 ng/mL (7-271); Folate 19.5 ng/mL (>5.38)
[2025-05-22 21:26] LABS: T3,Free 3.5 pg/mL (2.8-5.3)
== END 2025-05-22 02:08 | disposition home or self-care (01) ==
LOC: LBO 02:07
PROVIDERS: PCP Naturopath; Visit Provider Naturopath
DX: E61.1 Iron deficiency (principal); E07.81 Sick-euthyroid syndrome; E55.9 Vitamin D deficiency, unspecified
CPT/HCPCS: 36415; 80053; 82306; 82607; 82728; 82746; 83540; 83550; 84439; 84481; 85025; 86376